=== PATIENT | male | born 1955 | race Caucasian/White ===

== ENCOUNTER → 2023-07-02 11:43 | Outpatient (BNVA) | payer OTHER, SELFPAY | PROVIDERS: Visit Provider Physician Assistant | DX: S39.012A Strain of muscle, fascia and tendon of lower back, initial encounter (principal); W22.8XXA Striking against or struck by other objects, initial encounter | CPT/HCPCS: 99202 ==

== ENCOUNTER → 2023-07-05 09:20 | Outpatient (BNVA) | payer OTHER, SELFPAY | PROVIDERS: Visit Provider Physician Assistant | DX: S39.012A Strain of muscle, fascia and tendon of lower back, initial encounter (principal); W22.8XXA Striking against or struck by other objects, initial encounter | CPT/HCPCS: 99213 ==

== ENCOUNTER 2024-06-10 09:22 | Outpatient (REF) | payer MEDICARE, SELFPAY | END 2024-06-10 09:23 | disposition home or self-care (01) | LOC: HO.HOSX 09:22 | PROVIDERS: Visit Provider Orthopaedic Surgery | DX: M25.552 Pain in left hip (principal); M54.50 Low back pain, unspecified; Z96.642 Presence of left artificial hip joint | CPT/HCPCS: 72100; 73502; 99212 ==

== ENCOUNTER 2024-06-10 12:58 | Outpatient (AMB) | payer MEDICARE, BC, SELFPAY ==
--- NOTE | 2024-06-10 12:59 | MHC.OFFVIS ---
Vital Signs 06/10/24 13:16 Height 5 ft 9 in Weight 215 lb BMI 31.7 Intake Visit Reasons: [employer]- Left hip pain s/p LT YOBANI ~2012 Intake Note: Arie is a 69 year old male who presents with complaints of intermittent discomfort along the lateral aspect of his left hip after undergoing left total hip replacement surgery in May of 2023. He denies any fevers or chills. He did take a course of prednisone several months ago which gave him ?60% relief?. He continues to get massage therapy as well. He has not yet started formal physical therapy. Allergies sulfamethizole Allergy (Unknown, Verified 06/10/24 12:59) Hives gatifloxacin [From Tequin] Adverse Reaction (Unknown, Verified 06/10/24 12:59) Diarrhea levofloxacin [From Levaquin] Adverse Reaction (Unknown, Verified 06/10/24 12:59) Diarrhea Medication List - Last Reconciled 06/10/24 by Quinten Rodriguez MD apixaban (Eliquis) 2.5 mg PO BID diltiazem HCl CD 300 mg PO DAILY epinephrine IM DIRECTED fluticasone furoate 100 mcg/actuation (Arnuity Ellipta) 1 inh inhalation DAILY montelukast 10 mg PO DAILY pravastatin 20 mg PO BEDTIME Physical Exam Vital Signs: BMI result Body Mass Index 31.7 Const Other: Well-nourished well-developed very friendly male awake alert and oriented x3 in no acute distress Extrem Other: Bilateral lower extremity examination shows good capillary refill, no skin lesions noted, normal sensation light touch Left hip examination shows that the surgical incision is well healed, no erythema, full range of motion when compared to his right hip, mild discomfort with range of motion, tenderness over his bursa, no overlying skin lesions Results Reviewed Results Reviewed: X-rays of the patient's left hip show a total hip arthroplasty in good position with no signs of loosening, no acute bony abnormalities Assessment & Plan Assessment & Plan (1) Trochanteric bursitis, left hip: Code(s): M70.62 - Trochanteric bursitis, left hip Category: Medical Plan Arie presents with discomfort along the lateral aspect of his left hip most likely due to greater trochanteric bursitis. I had a lengthy discussion with the patient regarding the treatment options. We will hold off on a cortisone injection for now. I did give him another prescription for a Medrol Dosepak. He will begin physical therapy as scheduled. He will contact me prior to his follow-up appointment in 2 months should his symptoms worsen in any way. Feel free to call me at any time should questions regarding his orthopedic management arise. I spent 21 minutes in reviewing the patient's records and imaging studies, seeing the patient and documenting in the medical record. Orders: Orders XR hip LT min 2V Today M25.552 - Pain in left hip XR lumbar spine 2-3V Today M54.50 - Low back pain, unspecified Medications: New methylprednisolone (Medrol (Asaf)) PO PER PKG DIR 21 ea 0RF Discontinued cyclobenzaprine Discontinued Reason: Patient no longer taking 5 mg PO TID PRN 14 tabs 0RF muscle spasm Coding Level of Care Code Est Pt Level 3 (91015) Complex EM visit Add On G2211 Diagnoses Trochanteric bursitis, left hip M70.62
[2024-06-10 13:16] VITALS: BMI 31.7
== END 2024-06-10 13:24 | disposition home or self-care (01) ==
PROVIDERS: PCP Family Medicine; Visit Provider Orthopaedic Surgery
DX: M70.62 Trochanteric bursitis, left hip (principal)
CPT/HCPCS: 99213; G2211

== ENCOUNTER 2024-09-10 08:23 | Outpatient (AMB) | payer MEDICARE, SELFPAY ==
--- NOTE | 2024-09-10 08:32 | MHC.OFFVIS ---
Intake Visit Reasons: OV-LT hip pain s/p LT YOBANI ~2012 Intake Note: Arie is a 69 year old male who presents for follow-up after undergoing left total hip replacement surgery in May of 2023. At his last visit he was given a Medrol Asaf. Patient reports this provided relief. Patient reports he started formal PT, continues going once a week. Patient also reports he is now going to the gym. Patient denies pain however does feel pressure when using stairs. The patient would like to return to restricted work duty over the next few weeks. Allergies sulfamethizole Allergy (Unknown, Verified 09/10/24 08:32) Hives gatifloxacin [From Tequin] Adverse Reaction (Unknown, Verified 09/10/24 08:32) Diarrhea levofloxacin [From Levaquin] Adverse Reaction (Unknown, Verified 09/10/24 08:32) Diarrhea Medication List - Last Reconciled 09/10/24 by Quinten Rodriguez MD apixaban (Eliquis) 2.5 mg PO BID diltiazem HCl CD 300 mg PO DAILY epinephrine IM DIRECTED fluticasone furoate 100 mcg/actuation (Arnuity Ellipta) 1 inh inhalation DAILY montelukast 10 mg PO DAILY pravastatin 20 mg PO BEDTIME Physical Exam Const Other: Well-nourished well-developed very friendly male awake alert and oriented x3 in no acute distress Extrem Other: Left hip examination shows mild discomfort over his bursa, minimal discomfort with range of motion Assessment & Plan Assessment & Plan (1) Trochanteric bursitis, left hip: Code(s): M70.62 - Trochanteric bursitis, left hip Category: Medical Plan Arie presents with intermittent discomfort along the lateral aspect of his left hip to greater trochanteric bursitis. At this point the patient's symptoms are improving with physical therapy. We will hold off on a cortisone injection. He can return to restricted work duty as he tolerates. He will follow up with me on an as-needed basis should his symptoms worsen in any way. I spent 20 minutes in reviewing the patient's records and imaging studies, seeing the patient and documenting in the medical record. Coding Level of Care Code Est Pt Level 3 (79697) Complex EM visit Add On G2211 Diagnoses Trochanteric bursitis, left hip M70.62
--- OUTSIDE RECORDS SUMMARY | 2024-09-10 08:49 | XMS_ITS | Clinical Summary ---
Author Organization [facility] Address [address] [place] [address] Care Team Providers Care Dye Machine Operator Name Role Phone Chente Lizama MD Primary Care Provider [phone] Allergies Active Allergy Reactions Criticality Noted Date Comments Sulfa Antibiotics 05/17/2017 Medications Medication Sig Dispensed Refills Start Date End Date Status PROAIR HFA 108 (90 BASE) MCG/ACT inhaler 2 puffs 4 (four) times a day as needed. 11 05/06/2017 Active PRADAXA 75 MG capsule 0 05/06/2017 Active diltiazem (TIAZAC) 360 MG 24 hr capsule 0 05/06/2017 Active EPIPEN 2-CLARKE 0.3 MG/0.3ML SOAJ USE DIRECTED WHEN NEEDED 11 05/07/2017 Active pravastatin (PRAVACHOL) tablet 20 mg 0 05/06/2017 Active LEVITRA 20 MG tablet Take 20 mg by mouth daily as needed. 11 05/06/2017 Active amoxicillin (AMOXIL) 500 MG capsule Take 4 capsules 1 hour prior to dental appointment or colonoscopy 20 capsule 3 05/27/2017 Active CARTIA XT 300 MG 24 hr capsule 0 04/01/2018 Active albuterol (PROVENTIL) (2.5 MG/3ML) 0.083% nebulizer solution INHALE 3 ML(1 VIAL) EVERY 6 HOURS 1 05/14/2018 Active amoxicillin (AMOXIL) 500 MG tablet Take 4 tabs 1 hour prior to dental appointment, colonoscopy or surgical procedure 20 tablet 3 05/30/2018 Active Family History Medical History Relation Name Comments COPD Father Heart failure Father Hypertension Mother Relation Name Status Comments Father Mother Social History Tobacco Use Types Packs/Day Years Used Date Smoking Tobacco: Never Assessed Sex and Gender Information Value Date Recorded Sex Assigned at Not on file Gender Identity Not on file Sexual Orientation Not on file Last Filed Vital Signs Vital Sign Reading Time Taken Comments Blood Pressure - - Pulse - - Temperature - - Respiratory Rate - - Oxygen Saturation - - Inhaled Oxygen Concentration - - Weight 95.3 kg (210 lb) 05/17/2017 10:01 AM EST Height 177.8 cm (5' 10 ) 05/17/2017 10:01 AM EST Body Mass Index 30.13 05/17/2017 10:01 AM EST Plan of Treatment Health Maintenance Due Date Last Done Comments Hepatitis C Screening 1955 COVID-19 Vaccine (#1) 1955 Depression Screening 1967 Preventative Health Evaluation 1973 DTap / Tdap / Td (1 - Tdap) 1974 Colon Cancer Screening (Colonoscopy) 2000 Shingrix-Zoster Vaccine (1 of 2) 2005 Fall Risk Assessment 2020 Pneumococcal Vaccine (1 of 1 - PCV) 2020 Influenza Vaccine (#1) 2024 RSV Adult > 60+ Yrs or Pregn ant (1 - 1-dose 75+ series) 2030 Hepatitis B Vaccines Aged Out No long er eligible based on patient's age to complete this topic RSV Ped < 20 months Aged Out No longe r eligible based on patient's age to complete this topic Care Teams Dye Machine Operator Relationship Specialty Start Date End Date Chente Lizama MD [address] [place] [id number] PCP - General Fulfillment Representative 03/18/17
== END 2024-09-10 08:51 | disposition home or self-care (01) ==
LOC: HO.HOS 08:23
PROVIDERS: PCP Internal Medicine; Visit Provider Orthopaedic Surgery
DX: M70.62 Trochanteric bursitis, left hip (principal)
CPT/HCPCS: 99213; G2211

== ENCOUNTER → 2024-09-10 08:23 | Outpatient (BNVA) | payer MEDICARE, SELFPAY | PROVIDERS: PCP Family Medicine; Visit Provider Orthopaedic Surgery | DX: M70.62 Trochanteric bursitis, left hip (principal); Z96.642 Presence of left artificial hip joint | CPT/HCPCS: 99212 ==